=== PATIENT | female | born 1975 | race American Indian/Alaskan Native ===

== ENCOUNTER 2019-06-08 09:18 | Outpatient (CLI) | payer MEDICARE ==
--- NOTE | 2019-06-08 15:00 | Ultrasound Report ---
Renal ultrasound. 06/08/2019. HISTORY: Chronic kidney disease. FINDINGS: Right kidney measures 8.6 x 3.8 x 4.3 cm. Cortex measures 1.1 cm. Left kidney measures 7.5 x 3.8 x 4 cm. Cortex measures 0.9 cm. Cortical echogenicity is unremarkable. Negative for mass or obstruction. The bladder contains moderate urine. IMPRESSION: Small kidneys with associated cortical thinning. Signer Name: Dylan López MD Signed: 06/08/2019 2:55 PM Workstation Name: [id number]
== END 2019-06-08 09:19 | disposition home or self-care (01) ==
LOC: US 09:18
PROVIDERS: ATTEND Specialist
DX: N28.1 Cyst of kidney, acquired (principal); N18.3 Chronic kidney disease, stage 3 (moderate); Z91.040 Latex allergy status
CPT/HCPCS: 76770